=== PATIENT | male | born 1985 | race Caucasian/White ===

== ENCOUNTER 2016-12-16 19:58 | Emergency (ER) | payer MEDICARE | END 2016-12-16 21:41 | disposition home or self-care (01) | LOC: ER1 19:58 | DX: H10.9 Unspecified conjunctivitis (principal); F17.210 Nicotine dependence, cigarettes, uncomplicated | CPT/HCPCS: 99283 ==

== ENCOUNTER 2021-07-19 19:45 | Emergency (ER) | payer SELFPAY ==
[2021-07-19 20:44] LABS: HEMOGLOBIN 13.1 gm/dl (14.0-17.5); RED BLOOD COUNT 4.15 M/UL (4.20-5.50); WHITE BLOOD COUNT 15.7 K/UL (4.5-11.0)
[2021-07-19 21:08] LABS: BUN/CREATININE RATIO 10 (0-10)
[2021-07-19] MEDS ORDERED: AEROCHAMBER1 EA XX (22:13)
[2021-07-19] MEDS ORDERED: PREDNISONE20 MG PO (22:13)
[2021-07-19] MEDS ORDERED: PROVENTIL HFA6.7 GM INH (22:13)
[2021-07-19] MEDS ORDERED: OMNICEF 300 MG300 MG PO (22:13)
[2021-07-19] MEDS ORDERED: AZITHROMYCIN250 MG PO (22:13)
[2021-07-19] MEDS ORDERED: ZOFRAN ODT 4 MG4 MG PO (22:13)
== END 2021-07-19 22:25 | disposition home or self-care (01) ==
LOC: ER1 19:45
PROVIDERS: Family Medicine
DX: J18.9 Pneumonia, unspecified organism (principal); R11.2 Nausea with vomiting, unspecified; F17.210 Nicotine dependence, cigarettes, uncomplicated; Z20.822 Contact with and (suspected) exposure to COVID-19
CPT/HCPCS: 0240U; 71045; 80053; 82550; 82553; 83605; 83874; 83880; 84484; 85025; 94664; 96374; 96375; 99284; J0696; J2405; J2930; J7030